=== PATIENT | female | born 1960 | race Caucasian/White ===

== ENCOUNTER → 2018-05-22 09:34 | Outpatient (CLI) | payer OTHER, SELFPAY ==
--- NOTE | 2018-05-22 09:36 | DI.US.S_ITS ---
PROCEDURE: US PERIPH VENOUS LOW EXTREM RT INDICATIONS: right leg swelling and tenderness TECHNIQUE: Real-time imaging, as well as color and pulse Doppler interrogation, were performed of the lower extremity deep veins from the inguinal ligament to the popliteal fossa. COMPARISON: None. FINDINGS: The deep veins are normally compressible, and free of intraluminal thrombus. Color and pulse Doppler demonstrate normal phasic intraluminal flow. There is normal augmentation response to distal compression maneuver. Superficial venous thrombosis can be seen, with a thrombosed greater saphenous vein from the right saphenofemoral junction to the mid calf. IMPRESSION: Negative for deep venous thrombosis. Extensive superficial venous thrombosis involving the greater saphenous vein. Note: Concordant preliminary findings given by the color drum worker upon the completion of the examination to the walk-in clinic at 10 AM [place] time on May 22, 2018. Dictated by: Anupam Álvarez M.D. on 05/22/2018 at 9:18 Approved by: Anupam Álvarez M.D. on 05/22/2018 at 9:19
== END ==
PROVIDERS: PCP Nurse Practitioner; Visit Provider Physician Assistant
DX: I82.811 Embolism and thrombosis of superficial veins of right lower extremity (principal)
CPT/HCPCS: 93971

== ENCOUNTER → 2020-06-13 06:47 | Outpatient (CLI) | payer OTHER, SELFPAY ==
--- NOTE | 2020-06-13 08:10 | DI.CT.S_ITS ---
PROCEDURE: CT SINUS SCREEN WO CON INDICATIONS: Chronic pansinusitis TECHNIQUE: Noncontrast 3.0 mm axial images acquired from the frontal sinuses to the mid-sella, with coronal and sagittal reformats. For radiation dose reduction, the following was used: automated exposure control, adjustment of mA and/or kV according to patient size. COMPARISON: None. FINDINGS: Image quality: Excellent. Maxillary Sinuses: No bony remodeling or destruction. Sinuses are clear. Ethmoid Air Cells: No bony remodeling or destruction. Sinuses are clear. Sphenoid Sinuses: No bony remodeling or destruction. Sinuses are clear. Frontal Sinuses: No bony remodeling or destruction. Sinuses are clear. Ostiomeatal Complexes: Ostiomeatal complexes are patent. No Lauren cells. Miscellaneous: Visualized intra-orbital contents are normal. No catina bullosa or paradoxical turbinate curvature. Mild leftward nasal septal deviation. IMPRESSION: Clear sinuses Mild leftward nasal septal deviation Dictated by: Rony Woodall M.D. on 06/13/2020 at 8:46 Approved by: Rony Woodall M.D. on 06/13/2020 at 9:02
== END ==
PROVIDERS: PCP Nurse Practitioner; Referring Provider Nurse Practitioner; Visit Provider Otolaryngology
DX: J32.4 Chronic pansinusitis (principal); R51.9 Headache, unspecified; J34.2 Deviated nasal septum
CPT/HCPCS: 70486